=== PATIENT | male | born 1960 | race Caucasian/White ===

== ENCOUNTER 2025-01-09 15:39 | Outpatient (CLI) | payer OTHER ==
[2025-01-09 16:05] VITALS: BP 174/98; O2SAT 98
[2025-01-09 17:07] LABS: C REACTIVE PROTEIN QUANTITATIV < 0.50 MG/DL (<1.0); CREATININE FOR GFR 0.84 MG/DL (0.70-1.30); GLOMERULAR FILTRATION RATE > 90.0 (>49)
== END 2025-01-09 16:35 | disposition home or self-care (01) ==
LOC: M INFU 15:39 → EDBD 16:00 → M INFU 16:35
PROVIDERS: ATTEND Hospitalist
DX: M86.9 Osteomyelitis, unspecified (principal)

== ENCOUNTER 2025-01-16 15:25 | Outpatient (CLI) | payer OTHER ==
[~2025-01-16] VITALS: Ht 182.9 cm; Wt 102.0 kg
[2025-01-16 15:50] VITALS: BP 138/82; O2SAT 98
[2025-01-16 16:29] LABS: BASO # 0.0 10^3/uL (0.0-0.2); BASO % 0.5 % (0.0-1.0); EOS # 0.4 10^3/uL (0.0-0.5); EOS % 6.1 % (0.0-3.0); LYMPH # 2.5 10^3/uL (1.5-5.0); LYMPH % 41.3 % (24.0-44.0); MONO # 0.5 10^3/uL (0.0-0.8); MONO % 7.4 % (2.0-8.0); NEUTROPHILS # 2.7 10^3/uL (1.5-8.5); NEUTROPHILS % 44.5 % (36.0-66.0); PLATELET COUNT, AUTOMATED 223 10^3/uL (150-450)
[2025-01-16 16:47] LABS: ERYTHROCYTE SEDIMENTATION RATE 25 mm/hr (0-20)
[2025-01-16 16:57] LABS: C REACTIVE PROTEIN QUANTITATIV < 0.50 MG/DL (<1.0); CALCIUM LEVEL 9.2 MG/DL (8.3-10.6); CARBON DIOXIDE LEVEL 26 MMOL/L (20-31); CHLORIDE LEVEL 104 MMOL/L (98-107); CREATININE FOR GFR 0.82 MG/DL (0.70-1.30); GLOMERULAR FILTRATION RATE > 90.0 (>49); POTASSIUM SERUM 4.0 MMOL/L (3.5-5.1); SODIUM LEVEL 140 MMOL/L (136-145)
== END 2025-01-16 15:50 | disposition home or self-care (01) ==
LOC: M INFU 15:25
PROVIDERS: ATTEND Internal Medicine Infectious Disease
DX: M46.24 Osteomyelitis of vertebra, thoracic region (principal)

== ENCOUNTER 2025-01-22 15:51 | Outpatient (CLI) | payer OTHER ==
[~2025-01-22] VITALS: Ht 182.9 cm; Wt 100.9 kg
[2025-01-22 16:50] VITALS: BP 139/85; O2SAT 99
[2025-01-22 16:58] LABS: BASO # 0.0 10^3/uL (0.0-0.2); BASO % 0.4 % (0.0-1.0); EOS # 0.4 10^3/uL (0.0-0.5); EOS % 6.5 % (0.0-3.0); LYMPH # 2.6 10^3/uL (1.5-5.0); LYMPH % 46.2 % (24.0-44.0); MONO # 0.6 10^3/uL (0.0-0.8); MONO % 10.1 % (2.0-8.0); NEUTROPHILS # 2.0 10^3/uL (1.5-8.5); NEUTROPHILS % 36.6 % (36.0-66.0); PLATELET COUNT, AUTOMATED 217 10^3/uL (150-450)
[2025-01-22 17:02] LABS: ERYTHROCYTE SEDIMENTATION RATE 22 mm/hr (0-20)
[2025-01-22 17:31] LABS: C REACTIVE PROTEIN QUANTITATIV < 0.50 MG/DL (<1.0); CALCIUM LEVEL 9.4 MG/DL (8.3-10.6); CARBON DIOXIDE LEVEL 29 MMOL/L (20-31); CHLORIDE LEVEL 104 MMOL/L (98-107); CREATININE FOR GFR 0.81 MG/DL (0.70-1.30); GLOMERULAR FILTRATION RATE > 90.0 (>49); POTASSIUM SERUM 4.2 MMOL/L (3.5-5.1); SODIUM LEVEL 143 MMOL/L (136-145)
== END 2025-01-22 16:45 | disposition home or self-care (01) ==
LOC: M INFU 15:51 → EDUNIT# 01-23 16:30
DX: M86.9 Osteomyelitis, unspecified (principal)

== ENCOUNTER → 2025-01-24 | Outpatient (CLI) | payer OTHER | LOC: M INFU 16:31 | PROVIDERS: ATTEND Internal Medicine Infectious Disease | DX: Z45.2 Encounter for adjustment and management of vascular access device (principal) ==

== ENCOUNTER 2025-01-27 17:13 | Outpatient (CLI) | payer OTHER ==
[2025-01-27 18:01] LABS: BASO # 0.0 10^3/uL (0.0-0.2); BASO % 0.5 % (0.0-1.0); EOS # 0.3 10^3/uL (0.0-0.5); EOS % 5.6 % (0.0-3.0); LYMPH # 2.6 10^3/uL (1.5-5.0); LYMPH % 45.8 % (24.0-44.0); MONO # 0.6 10^3/uL (0.0-0.8); MONO % 9.8 % (2.0-8.0); NEUTROPHILS # 2.2 10^3/uL (1.5-8.5); NEUTROPHILS % 38.1 % (36.0-66.0); PLATELET COUNT, AUTOMATED 218 10^3/uL (150-450)
[2025-01-27 18:13] LABS: ERYTHROCYTE SEDIMENTATION RATE 19 mm/hr (0-20)
[2025-01-27 18:28] LABS: C REACTIVE PROTEIN QUANTITATIV < 0.50 MG/DL (<1.0); CALCIUM LEVEL 9.6 MG/DL (8.3-10.6); CARBON DIOXIDE LEVEL 28 MMOL/L (20-31); CHLORIDE LEVEL 104 MMOL/L (98-107); CREATININE FOR GFR 0.77 MG/DL (0.70-1.30); GLOMERULAR FILTRATION RATE > 90.0 (>49); POTASSIUM SERUM 4.1 MMOL/L (3.5-5.1); SODIUM LEVEL 142 MMOL/L (136-145)
== END 2025-01-27 17:45 ==
LOC: M INFU 17:13 → EDUNIT# 01-30 16:00 → M INFU 02-04 15:10
DX: M46.24 Osteomyelitis of vertebra, thoracic region (principal); Z45.2 Encounter for adjustment and management of vascular access device

== ENCOUNTER 2025-02-04 14:33 | Outpatient (CLI) | payer OTHER ==
[~2025-02-04 14:33] MED LIST: HEPARIN LOCK FLUSH 100 UNITS/ML 3 ML SYRINGE IV PRN; SODIUM CHLORIDE 0.9% INJ 10 ML SYR IV PRN
[2025-02-04 14:40] VITALS: BP 177/88; O2SAT 98
[2025-02-04 14:59] LABS: BASO # 0.0 10^3/uL (0.0-0.2); BASO % 0.3 % (0.0-1.0); EOS # 0.3 10^3/uL (0.0-0.5); EOS % 5.0 % (0.0-3.0); LYMPH # 2.5 10^3/uL (1.5-5.0); LYMPH % 42.9 % (24.0-44.0); MONO # 0.5 10^3/uL (0.0-0.8); MONO % 8.3 % (2.0-8.0); NEUTROPHILS # 2.5 10^3/uL (1.5-8.5); NEUTROPHILS % 43.3 % (36.0-66.0); PLATELET COUNT, AUTOMATED 190 10^3/uL (150-450)
[2025-02-04 15:12] LABS: ERYTHROCYTE SEDIMENTATION RATE 6 mm/hr (0-20)
[2025-02-04 15:35] LABS: C REACTIVE PROTEIN QUANTITATIV < 0.50 MG/DL (<1.0)
[2025-02-04 15:37] LABS: CALCIUM LEVEL 9.5 MG/DL (8.3-10.6); CARBON DIOXIDE LEVEL 26 MMOL/L (20-31); CHLORIDE LEVEL 104 MMOL/L (98-107); CREATININE FOR GFR 0.88 MG/DL (0.70-1.30); GLOMERULAR FILTRATION RATE > 90.0 (>49); POTASSIUM SERUM 3.9 MMOL/L (3.5-5.1); SODIUM LEVEL 142 MMOL/L (136-145)
== END 2025-02-04 15:10 ==
LOC: M INFU 14:33 → EDUNIT# 02-06 16:00
DX: M86.9 Osteomyelitis, unspecified (principal)

== ENCOUNTER 2025-02-07 17:03 | Outpatient (CLI) | payer OTHER | END 2025-02-07 17:45 | disposition home or self-care (01) | LOC: M INFU 17:03 | DX: Z45.2 Encounter for adjustment and management of vascular access device (principal) ==

== ENCOUNTER → 2025-04-14 | Outpatient (CLI) | payer OTHER ==
[~2025-04-14] MED LIST changes: -HEPARIN LOCK FLUSH 100 UNITS/ML 3 ML SYRINGE IV PRN; +PROHANCE 279.3MG/ML 15ML VIAL As Ordered ONE; +PROHANCE 279.3MG/ML 5ML VIAL As Ordered ONE; -SODIUM CHLORIDE 0.9% INJ 10 ML SYR IV PRN
== END ==
LOC: M RAD 15:00
PROVIDERS: ATTEND Internal Medicine Infectious Disease
DX: M46.24 Osteomyelitis of vertebra, thoracic region (principal); M47.814 Spondylosis without myelopathy or radiculopathy, thoracic region
CPT/HCPCS: 72157; A9579

== ENCOUNTER → 2025-05-23 | Outpatient (CLI) | payer OTHER ==
[2025-05-23 10:27] LABS: MONO SCRN NEGATIVE (NEGATIVE)
== END ==
LOC: M LAB 09:34
DX: Z20.828 Contact with and (suspected) exposure to other viral communicable diseases (principal)

== ENCOUNTER → 2025-06-02 | Outpatient (CLI) | payer OTHER ==
[2025-06-02 10:15] LABS: PLATELET COUNT, AUTOMATED 199 10^3/uL (150-450)
[2025-06-02 10:22] LABS: ESTIMATED AVERAGE GLUCOSE 105.0 MG/DL (60-110)
[2025-06-02 10:40] LABS: ALT/SGPT 27.0 U/L (7.0-40); AST/SGOT 22.0 U/L (<34); CALCIUM LEVEL 9.1 MG/DL (8.3-10.6); CARBON DIOXIDE LEVEL 28.0 MMOL/L (20-31); CHLORIDE LEVEL 105.0 MMOL/L (98-107); CHOLESTEROL LEVEL 180.0 MG/DL (<200); CHOLESTEROL RISK RATIO 4.13 (<5); CREATININE FOR GFR 1.01 MG/DL (0.70-1.30); GLOMERULAR FILTRATION RATE 83.1 (>49); LDL CHOLESTEROL 115.5 MG/DL (<100); NON-HDL-C 136.5 MG/DL; POTASSIUM SERUM 4.1 MMOL/L (3.5-5.1); PSA SCREENING 0.95 NG/ML (< 4.00); SODIUM LEVEL 140.0 MMOL/L (136-145); TRIGLYCERIDES LEVEL 105.0 MG/DL (<150)
[2025-06-02 10:42] LABS: FREE T4 1.05 NG/DL (0.89-1.76)
== END ==
LOC: M LAB 09:41
DX: I10 Essential (primary) hypertension (principal); Z13.1 Encounter for screening for diabetes mellitus; E03.9 Hypothyroidism, unspecified; Z12.5 Encounter for screening for malignant neoplasm of prostate; E78.2 Mixed hyperlipidemia
CPT/HCPCS: 36415; 80053; 80061; 83036; 84439; 84443; 85027; G0103

== ENCOUNTER → 2025-06-03 | Outpatient (CLI) | payer OTHER ==
[~2025-06-03] MED LIST changes: -PROHANCE 279.3MG/ML 15ML VIAL As Ordered ONE; +PROHANCE 279.3MG/ML 15ML VIAL ONE; -PROHANCE 279.3MG/ML 5ML VIAL As Ordered ONE; +PROHANCE 279.3MG/ML 5ML VIAL ONE
== END ==
LOC: M PLAIMG 12:48
PROVIDERS: ATTEND Physician Assistant
DX: M46.24 Osteomyelitis of vertebra, thoracic region (principal)